=== PATIENT | female | born 1975 | race Two or more races ===

== ENCOUNTER 2016-07-19 04:11 | Emergency (ER) | payer MEDICAID ==
[~2016-07-19] VITALS: Ht 154.9 cm; Wt 74.8 kg
[2016-07-19 04:19] VITALS: BP 121/84
== END 2016-07-19 05:20 | disposition home or self-care (01) ==
LOC: ER 04:13
DX: H92.01 Otalgia, right ear (principal); F17.200 Nicotine dependence, unspecified, uncomplicated; Z90.49 Acquired absence of other specified parts of digestive tract
CPT/HCPCS: 99283; A4606; Z7610

== ENCOUNTER 2017-07-09 11:00 | Emergency (ER) | payer MEDICAID ==
[~2017-07-09] VITALS: Ht 154.9 cm; Wt 84.8 kg
[2017-07-09 11:00] VITALS: BP 147/47
--- NOTE | 2017-07-09 11:30 | NUR ---
pt refused to be triaged at this time
[2017-07-09] MEDS ORDERED: IBUPROFEN 600 MG TABLET PO ONE ×2 (12:30→12:45)
[2017-07-09] MEDS ORDERED: HYDROCODONE/APAP 5/325MG 1 EACH TABLET PO ONE (12:30)
[2017-07-09] MEDS ORDERED: HYDROCODONE/APAP 5/325MG 1 EACH TABLET ONE (12:45)
[2017-07-09] MEDS ORDERED: MORPHINE SULFATE INJ 2 MG/ML DISP.SYRIN IM ONE (13:00)
[2017-07-09] MEDS ORDERED: ONDANSETRON 4 MG TAB.RAPDIS SL ONE (13:00)
[2017-07-09] MEDS ORDERED: MORPHINE SULFATE INJ 4 MG/ML DISP.SYRIN ONE (13:02)
== END 2017-07-09 13:20 | disposition home or self-care (01) ==
LOC: ER 11:02
DX: S16.1XXA Strain of muscle, fascia and tendon at neck level, initial encounter (principal); F17.200 Nicotine dependence, unspecified, uncomplicated; Z90.49 Acquired absence of other specified parts of digestive tract; Z98.890 Other specified postprocedural states; X58.XXXA Exposure to other specified factors, initial encounter; Y93.89 Activity, other specified; Y92.89 Other specified places as the place of occurrence of the external cause; Y99.8 Other external cause status
CPT/HCPCS: 96372; 99284; A4606; J2270; Z7610

== ENCOUNTER 2018-04-03 16:23 | Emergency (ER) | payer MEDICAID, OTHER ==
[~2018-04-03] VITALS: Ht 154.9 cm; Wt 78.9 kg
[2018-04-03 16:41] VITALS: BP 121/81
[2018-04-03] MEDS ORDERED: HYDROCODONE/APAP 5/325MG 1 EACH TABLET PO ONE (18:00)
[2018-04-03] MEDS ORDERED: HYDROCODONE/APAP 5/325MG 1 EACH TABLET ONE (18:10)
== END 2018-04-03 18:31 | disposition home or self-care (01) ==
LOC: ER 16:30
DX: L03.012 Cellulitis of left finger (principal); L60.0 Ingrowing nail; M25.521 Pain in right elbow; F17.200 Nicotine dependence, unspecified, uncomplicated; Z90.49 Acquired absence of other specified parts of digestive tract; Z98.890 Other specified postprocedural states
CPT/HCPCS: 10060; 73080; 99283; A4606; A6403; A6407; Z7610

== ENCOUNTER 2019-01-16 22:23 | Emergency (ER) | payer OTHER ==
[~2019-01-16] VITALS: Ht 160 cm; Wt 87.5 kg
[2019-01-16 22:31] VITALS: BP 113/65
--- NOTE | 2019-01-16 22:51 | NUR ---
PT RETURNED FROM RADIOLOGY VIA WHEELCHAIR
== END 2019-01-16 23:20 | disposition home or self-care (01) ==
LOC: ER 22:23
DX: R07.89 Other chest pain (principal); F17.200 Nicotine dependence, unspecified, uncomplicated; Z90.49 Acquired absence of other specified parts of digestive tract; Z98.82 Breast implant status
CPT/HCPCS: 71046

== ENCOUNTER 2019-02-13 16:58 | Emergency (ER) | payer OTHER ==
[~2019-02-13] VITALS: Ht 160 cm; Wt 85.7 kg
--- NOTE | 2019-02-13 17:28 | NUR ---
PT CAME INTO THE ED C/O ABDOMINAL PAIN SINCE YESTERDAY 09/11. PT AAOX4, VSS, BREATHING EVEN AND UNLABORED ON ROOM AIR W NAD. PT CONNECTED TO THE MONITOR
[2019-02-13 17:50] LABS: BASOPHILS % (AUTO) 0.6 % (0.0-2.0); EOSINOPHILS % (AUTO) 1.9 % (0.0-6.0); HEMATOCRIT 32 % (33-45); LYMPHOCYTES # (AUTO) 1.4 /CMM (0.8-4.8); LYMPHOCYTES % (AUTO) 19.1 % (20.0-44.0); MEAN CORPUSCULAR HGB CONC 31 g/dl (31.0-36.0); MEAN CORPUSCULAR VOLUME 73 fL (82-100); MONOCYTES # (AUTO) 0.4 /CMM (0.1-1.30); MONOCYTES % (AUTO) 5.8 % (2.0-12.0); NEUTROPHILS # (AUTO) 5.3 /CMM (1.8-8.9); NEUTROPHILS % (AUTO) 72.6 % (43.0-81.0); PLATELET COUNT (AUTO) 354 /CMM (150-450); RED BLOOD CELL COUNT(AUTO) 4.41 MIL/uL (4.0-5.2); WHITE BLOOD COUNT (AUTO) 7.3 K/uL (4.3-11.0)
[2019-02-13] MEDS ORDERED: IBUPROFEN 600 MG TABLET PO ONE ×2 (17:54→18:00)
[2019-02-13 18:00] LABS: APPEARANCE,URINE Slightly Cloudy (CLEAR); BILIRUBIN,URINE SMALL (NEGATIVE); BLOOD, URINE Large Ery/uL (NEGATIVE); COLOR,URINE Yellow (YELLOW); KETONES,URINE Negative (NEGATIVE); LEUKOCYTE ESTERASE ,URINE Trace (NEGATIVE); NITRITE, URINE Negative (NEGATIVE); PH,URINE 5.5 (5.0-8.0); PROTEIN,URINE Negative (NEGATIVE); UGLUCOSE Negative (NEGATIVE); UROBILINOGEN,URINE 0.2 EU/dL (0.2)
[2019-02-13 18:04] LABS: ALBUMIN 3.7 g/dL (3.4-5.0); BILIRUBIN,TOTAL 0.1 mg/dL (0.2-1.0); CALCIUM, SERUM 9.1 mg/dL (8.5-10.1); CREATININE 0.7 mg/dL (0.6-1.3); POTASSIUM 4.2 mmol/L (3.5-5.1); TOTAL PROTEIN, SERUM 7.7 g/dL (6.4-8.2)
[2019-02-13 18:18] LABS: EOSINOPHILS % (MANUAL) 4 % (0-4); LYMPHOCYTES % (MANUAL) 20 % (16-48); MONOCYTES % (MANUAL) 7 % (0-11.0); NEUTROPHILS % (MANUAL) 69 (42-76)
[2019-02-13 18:21] LABS: RBC,URINE TOO NUMEROUS TO COUN /HPF (0-2)
[2019-02-13 18:22] LABS: BACTERIA,URINE Few /HPF (None Seen); MUCUS,URINE Many /LPF (None Seen); SQUAMOUS EPITHELIAL CELL,UR Many /HPF (None Seen); WBC,URINE 21-50 /HPF (0-3)
[2019-02-13 18:59] VITALS: BP 130/82
--- NOTE | 2019-02-13 18:59 | NUR ---
Patient discharged to home in stable condition. Written and verbal after care instructions given. Patient verbalizes understanding of instruction.
== END 2019-02-13 19:03 | disposition home or self-care (01) ==
LOC: ER 17:00
DX: N39.0 Urinary tract infection, site not specified (principal); F17.200 Nicotine dependence, unspecified, uncomplicated; Z98.890 Other specified postprocedural states; Z90.49 Acquired absence of other specified parts of digestive tract
CPT/HCPCS: 36415; 80048-TC; 80076-TC; 81000-TC; 83690-TC; 84703-TC; 85025-TC; 87086-TC

== ENCOUNTER 2019-03-04 10:24 | Emergency (ER) | payer OTHER ==
[~2019-03-04] VITALS: Ht 170.2 cm; Wt 89.0 kg
--- NOTE | 2019-03-04 10:30 | NUR ---
BIBRA FROM C/O L SIDE CHEST PAIN PRESSURE LIKE RADIATES TO L [id number]. PATIENT A/OX4, CRYING. KIDS AT BEDSIDE. BREATHING EVEN AND UNLABORED, NO SOB NOTED. NEEDS ATTENDED.
--- NOTE | 2019-03-04 10:30 | NUR ---
SEEN AND EXAMINED BY DR. MOORE
--- NOTE | 2019-03-04 10:33 | NUR ---
IV LINE ESTABLISHED, BLOOD DRAWN AND SENT TO LAB.
[2019-03-04 10:43] LABS: BASOPHILS % (AUTO) 0.6 % (0.0-2.0); EOSINOPHILS % (AUTO) 3.1 % (0.0-6.0); HEMATOCRIT 32 % (33-45); HEMOGLOBIN 9.9 g/dL (11.5-14.8); LYMPHOCYTES # (AUTO) 1.6 /CMM (0.8-4.8); MEAN CORPUSCULAR HGB CONC 31 g/dl (31.0-36.0); MEAN CORPUSCULAR VOLUME 74 fL (82-100); MONOCYTES # (AUTO) 0.5 /CMM (0.1-1.30); MONOCYTES % (AUTO) 7.3 % (2.0-12.0); NEUTROPHILS # (AUTO) 4.4 /CMM (1.8-8.9); PLATELET COUNT (AUTO) 333 /CMM (150-450); RED BLOOD CELL COUNT(AUTO) 4.31 MIL/uL (4.0-5.2); WHITE BLOOD COUNT (AUTO) 6.7 K/uL (4.3-11.0)
[2019-03-04 11:02] LABS: ALANINE AMINOTRANSFERASE 26 U/L (12-78); ALBUMIN 3.2 g/dL (3.4-5.0); ALKALINE PHOSPHATASE 61 U/L (46-116); ASPARTATE AMINOTRANSFERASE 13 U/L (15-37); BILIRUBIN,TOTAL 0.1 mg/dL (0.2-1.0); CALCIUM, SERUM 8.5 mg/dL (8.5-10.1); CARBON DIOXIDE 22 mmol/L (21-32); CHLORIDE 107 mmol/L (98-107); CREATININE 0.7 mg/dL (0.6-1.3); GLUCOSE 87 mg/dL (74-106); POTASSIUM 3.9 mmol/L (3.5-5.1); SODIUM SERUM 141 mmol/L (136-145); TOTAL PROTEIN, SERUM 6.9 g/dL (6.4-8.2); UREA NITROGEN, BLOOD 10 mg/dL (7-18)
[2019-03-04] MEDS ORDERED: HYDROCODONE/APAP 5/325MG 1 EACH TABLET ONE (11:27)
[2019-03-04] MEDS ORDERED: KETOROLAC TROMETHAMINE INJ 30 MG/ML VIAL ONE (11:27)
[2019-03-04] MEDS ORDERED: KETOROLAC TROMETHAMINE INJ 30 MG/ML VIAL IV ONE (11:30)
[2019-03-04] MEDS ORDERED: HYDROCODONE/APAP 5/325MG 1 EACH TABLET PO ONE (11:30)
--- NOTE | 2019-03-04 12:13 | NUR ---
Patient denies pain at this time. Ambulatory with a steady gait. IV removed. Catheter intact and site benign. Pressure and 4x4 applied to site. No bleeding noted.Patient discharged to home in stable condition. Written and verbal after care instructions given. Patient verbalizes understanding of instruction.
[2019-03-04 12:14] VITALS: BP 116/78
== END 2019-03-04 12:14 | disposition home or self-care (01) ==
LOC: ER 10:26
DX: F41.9 Anxiety disorder, unspecified (principal); R07.89 Other chest pain; F17.200 Nicotine dependence, unspecified, uncomplicated; Z90.49 Acquired absence of other specified parts of digestive tract; Z98.890 Other specified postprocedural states
CPT/HCPCS: 36415; 71045; 80048; 80076; 84484; 84702; 85025; 93005 ×2; 96374; 99284; J1885

== ENCOUNTER 2019-05-31 17:26 | Emergency (ER) | payer OTHER ==
[~2019-05-31] VITALS: Ht 154.9 cm; Wt 83.5 kg
--- NOTE | 2019-05-31 17:48 | NUR ---
CAME IN FOR LEFT SIDED, PRESSURE-LIKE CHEST PAIN "Chest Pain started yesterday now worse - left arm sleepy", TO ER BED 10, HOOKED TO BP CUFF AND POX, CHANGED TO HOSP GOWN, WARM BLANKET PROVIDED. PATIENT AOx4 , BREATHING EVEN AND UNLABORED. AWAITING MD MENA.
--- NOTE | 2019-05-31 17:56 | NUR ---
DR VALDES AT BEDSIDE
[2019-05-31] MEDS ORDERED: KETOROLAC TROMETHAMINE INJ 30 MG/ML VIAL IV ONE (18:00)
[2019-05-31] MEDS ORDERED: IV NS 0.9% 500 ML BAG IV ONE (18:00)
[2019-05-31] MEDS ORDERED: KETOROLAC TROMETHAMINE 15 MG/ML VIAL ONE (18:12)
[2019-05-31 18:15] LABS: BASOPHILS # (AUTO) 0.1 /CMM (0.0-0.2); BASOPHILS % (AUTO) 0.7 % (0.0-2.0); EOSINOPHILS % (AUTO) 2.3 % (0.0-6.0); HEMATOCRIT 31 % (33-45); HEMOGLOBIN 9.7 g/dL (11.5-14.8); LYMPHOCYTES # (AUTO) 1.5 /CMM (0.8-4.8); LYMPHOCYTES % (AUTO) 18.4 % (20.0-44.0); MEAN CORPUSCULAR HGB CONC 31 g/dl (31.0-36.0); MEAN CORPUSCULAR VOLUME 73 fL (82-100); MONOCYTES # (AUTO) 0.6 /CMM (0.1-1.30); MONOCYTES % (AUTO) 7.7 % (2.0-12.0); NEUTROPHILS # (AUTO) 5.6 /CMM (1.8-8.9); NEUTROPHILS % (AUTO) 70.9 % (43.0-81.0); PLATELET COUNT (AUTO) 442 /CMM (150-450); WHITE BLOOD COUNT (AUTO) 7.9 K/uL (4.3-11.0)
[2019-05-31 18:26] LABS: CALCIUM, SERUM 9.2 mg/dL (8.5-10.1); CARBON DIOXIDE 27 mmol/L (21-32); CHLORIDE 106 mmol/L (98-107); CREATININE 0.9 mg/dL (0.6-1.3); GLUCOSE 107 mg/dL (74-106); POTASSIUM 3.3 mmol/L (3.5-5.1); SODIUM SERUM 140 mmol/L (136-145); UREA NITROGEN, BLOOD 10 mg/dL (7-18)
[2019-05-31 18:32] LABS: ALANINE AMINOTRANSFERASE 23 U/L (12-78); ALBUMIN 3.5 g/dL (3.4-5.0); ALKALINE PHOSPHATASE 83 U/L (46-116); ASPARTATE AMINOTRANSFERASE 12 U/L (15-37); BILIRUBIN,TOTAL 0.2 mg/dL (0.2-1.0); LIPASE 83 U/L (73-393); TOTAL PROTEIN, SERUM 7.4 g/dL (6.4-8.2)
[2019-05-31 18:59] LABS: EOSINOPHILS % (MANUAL) 2 % (0-4); LYMPHOCYTES % (MANUAL) 19 % (16-48); MONOCYTES % (MANUAL) 6 % (0-11.0); NEUTROPHILS % (MANUAL) 73 (42-76)
--- NOTE | 2019-05-31 19:23 | NUR ---
IV removed. Catheter intact and site benign. Pressure and 4x4 applied to site. No bleeding noted.Patient discharged to home in stable condition. Written and verbal after care instructions given. Patient verbalizes understanding of instruction.
[2019-05-31 19:24] VITALS: BP 116/74
== END 2019-05-31 19:26 | disposition home or self-care (01) ==
LOC: ER 17:32
DX: R07.89 Other chest pain (principal); F41.9 Anxiety disorder, unspecified; Z90.49 Acquired absence of other specified parts of digestive tract; Z98.890 Other specified postprocedural states; Z98.82 Breast implant status
CPT/HCPCS: 36415; 80048; 80076; 83690; 84484; 84702; 85025; 93005; 96374; 99284; J1885; J7040

== ENCOUNTER 2019-06-08 19:38 | Emergency (ER) | payer OTHER ==
[~2019-06-08] VITALS: Ht 160 cm; Wt 88.0 kg
--- NOTE | 2019-06-08 19:56 | NUR ---
URINE COLECTED AND SENT TO LAB
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
[2019-06-08] MEDS ORDERED: FAMOTIDINE (20 MG) 20 MG TABLET ONE (20:11)
[2019-06-08] MEDS ORDERED: FAMOTIDINE (20 MG) 20 MG TABLET PO ONE (20:30)
[2019-06-08 21:29] VITALS: BP 130/78
--- NOTE | 2019-06-08 21:29 | NUR ---
Patient discharged to home in stable condition. Written and verbal after care instructions given. Patient verbalizes understanding of instruction.
== END 2019-06-08 21:31 | disposition home or self-care (01) ==
LOC: ER 19:39
DX: R10.13 Epigastric pain (principal); F17.200 Nicotine dependence, unspecified, uncomplicated; Z90.49 Acquired absence of other specified parts of digestive tract; Z98.890 Other specified postprocedural states

== ENCOUNTER 2019-06-19 13:49 | Emergency (ER) | payer OTHER ==
[~2019-06-19] VITALS: Ht 160 cm; Wt 87.1 kg
[2019-06-19 14:07] VITALS: BP 130/86
[2019-06-19] MEDS ORDERED: TRAMADOL HCL 50 MG TABLET PO ONE (14:30)
[2019-06-19] MEDS ORDERED: TRAMADOL HCL 50 MG TABLET ONE (14:33)
--- NOTE | 2019-06-19 14:35 | NUR ---
INSTALLATION MANAGER AT BEDSIDE FOR XRAY.
--- NOTE | 2019-06-19 15:10 | NUR ---
RON WRAP AND CRUTCHES DONE BY DIRECTOR OF PLANNING.
== END 2019-06-19 15:14 | disposition home or self-care (01) ==
LOC: ER 13:52
DX: M25.562 Pain in left knee (principal); Z90.49 Acquired absence of other specified parts of digestive tract; Z98.890 Other specified postprocedural states; Z98.82 Breast implant status
CPT/HCPCS: 73564-TC

== ENCOUNTER 2019-06-27 17:58 | Emergency (ER) | payer OTHER ==
[~2019-06-27] VITALS: Ht 162.6 cm; Wt 87.1 kg
--- NOTE | 2019-06-27 18:12 | NUR ---
C/O LEFT KNEE PAIN AND SWELLING. PATIENT A/OX4, BREATHING EVEN AND UNLABORED, ABLE TO AMBULATE BUT LIMPING. NEEDS ATTENDED. KEPT COMFORTABLE.
--- NOTE | 2019-06-27 18:49 | NUR ---
Patient discharged to home in stable condition. Written and verbal after care instructions given. Patient verbalizes understanding of instruction. Eyal wrap bandage.
[2019-06-27 18:50] VITALS: BP 128/84
== END 2019-06-27 18:50 | disposition home or self-care (01) ==
LOC: ER 17:58
DX: M25.562 Pain in left knee (principal); Z90.49 Acquired absence of other specified parts of digestive tract

== ENCOUNTER 2019-08-05 13:46 | Emergency (ER) | payer OTHER ==
[~2019-08-05] VITALS: Ht 162.6 cm; Wt 88.5 kg
[2019-08-05 13:52] VITALS: BP 145/96
--- NOTE | 2019-08-05 14:17 | NUR ---
AT BEDSIDE FOR EVAL.
--- NOTE | 2019-08-05 14:29 | NUR ---
ARTHROCENTESIS DONE BY .
--- NOTE | 2019-08-05 14:50 | NUR ---
KNEE BRACE APPLIED BY FIRE PREVENTION INSPECTOR.
--- NOTE | 2019-08-05 14:52 | NUR ---
Patient discharged to home in stable condition. Written and verbal after care instructions given. Patient verbalizes understanding of instruction.
== END 2019-08-05 14:53 | disposition home or self-care (01) ==
LOC: ER 13:51
DX: M25.562 Pain in left knee (principal); Z98.890 Other specified postprocedural states; Z90.49 Acquired absence of other specified parts of digestive tract
CPT/HCPCS: 20610; 99284; A6403

== ENCOUNTER 2019-12-22 18:17 | Emergency (ER) | payer OTHER ==
[~2019-12-22] VITALS: Ht 160 cm; Wt 83.9 kg
[2019-12-22] MEDS ORDERED: KETOROLAC TROMETHAMINE INJ 30 MG/ML VIAL ONE (18:58)
[2019-12-22] MEDS ORDERED: KETOROLAC TROMETHAMINE INJ 30 MG/ML VIAL IM ONE (19:00)
--- NOTE | 2019-12-22 19:00 | NUR ---
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 ON ROOM AIR, BREATHING EVENLY AND UNLABORED. CONNECTED TO THE MONITOR AND PULSE OX. KEPT COMFORTABLE, WILL CONTINUE TO MONITOR ACCORDINGLY.
--- NOTE | 2019-12-22 20:15 | NUR ---
PT RECEIVED WALKING BOOT. TOLERATED WELL. AMBULATORY WITH STEADY GAIT. Patient discharged to home in stable condition. Written and verbal after care instructions given. Patient verbalizes understanding of instruction.
[2019-12-22 20:16] VITALS: BP 124/79
== END 2019-12-22 20:16 | disposition home or self-care (01) ==
LOC: ER 18:22
DX: S93.492A Sprain of other ligament of left ankle, initial encounter (principal); F17.200 Nicotine dependence, unspecified, uncomplicated; Z90.49 Acquired absence of other specified parts of digestive tract; Z98.890 Other specified postprocedural states; X50.1XXA Overexertion from prolonged static or awkward postures, initial encounter; Y93.89 Activity, other specified; Y92.89 Other specified places as the place of occurrence of the external cause; Y99.0 Civilian activity done for income or pay
CPT/HCPCS: 73610; 73630; 96372; 99284; J1885

== ENCOUNTER 2020-08-20 19:24 | Emergency (ER) | payer OTHER ==
[~2020-08-20] VITALS: Ht 160 cm; Wt 97.5 kg
--- NOTE | 2020-08-20 19:57 | NUR ---
BIBS FROM HOME TO ER BED 7. AAOX4. NOT IN RESP DISTRESS. AMBULATORY. CAME IN FOR NAUSEA, VOMMITING AND DIARRHEA X 10 DAYS. PROVIDER WAS AT THE BEDSIDE FOR EVAL. ORDERS RECEIVED, NOTED AND CARRIED OUT.
[2020-08-20] MEDS: IV NS 0.9% 1,000 ML BAG IV ONE (20:13)
[2020-08-20 20:15] LABS: BASOPHILS # (AUTO) 0.1 /CMM (0.0-0.2); BASOPHILS % (AUTO) 0.6 % (0.0-2.0); EOSINOPHILS % (AUTO) 2.2 % (0.0-6.0); HEMATOCRIT 42 % (33-45); HEMOGLOBIN 13.8 g/dL (11.5-14.8); LYMPHOCYTES # (AUTO) 2.2 /CMM (0.8-4.8); LYMPHOCYTES % (AUTO) 20.9 % (20.0-44.0); MEAN CORPUSCULAR HGB CONC 33 g/dl (31.0-36.0); MEAN CORPUSCULAR VOLUME 90 fL (82-100); MONOCYTES # (AUTO) 0.6 /CMM (0.1-1.30); MONOCYTES % (AUTO) 6.2 % (2.0-12.0); NEUTROPHILS # (AUTO) 7.3 /CMM (1.8-8.9); NEUTROPHILS % (AUTO) 70.1 % (43.0-81.0); PLATELET COUNT (AUTO) 276 /CMM (150-450); RED BLOOD CELL COUNT(AUTO) 4.69 MIL/uL (4.0-5.2); WHITE BLOOD COUNT (AUTO) 10.3 K/uL (4.3-11.0)
[2020-08-20] MEDS ORDERED: ONDANSETRON HCL/PF 4 MG/2 ML VIAL ONE (20:17)
[2020-08-20] MEDS: ONDANSETRON HCL/PF 4 MG/2 ML VIAL IVP ONE (20:20)
[2020-08-20 20:21] LABS: BILIRUBIN,URINE Negative (NEGATIVE); COLOR,URINE YELLOW (YELLOW); LEUKOCYTE ESTERASE ,URINE Trace (NEGATIVE); NITRITE, URINE Negative (NEGATIVE); PH,URINE 5.5 (5.0-8.0); PROTEIN,URINE Negative (NEGATIVE); UGLUCOSE Negative (NEGATIVE); UROBILINOGEN,URINE 0.2 EU/dL (0.2)
[2020-08-20 20:22] LABS: BACTERIA,URINE Few /HPF (None Seen); RBC,URINE NONE SEEN /HPF (0-2); SQUAMOUS EPITHELIAL CELL,UR Few /HPF (None Seen)
[2020-08-20 20:24] LABS: CALCIUM, SERUM 8.9 mg/dL (8.5-10.1); CREATININE 0.7 mg/dL (0.6-1.3); POTASSIUM 3.8 mmol/L (3.5-5.1)
[2020-08-20 20:30] LABS: ALBUMIN 3.1 g/dL (3.4-5.0); BILIRUBIN,TOTAL 0.1 mg/dL (0.2-1.0); TOTAL PROTEIN, SERUM 6.6 g/dL (6.4-8.2)
[2020-08-20] MEDS ORDERED: ONDA4TAB5 PO (20:54)
--- NOTE | 2020-08-20 21:27 | NUR ---
Patient discharged to home in stable condition. Written and verbal after care instructions given. Patient verbalizes understanding of instruction.IV removed. Catheter intact and site benign. Pressure and 4x4 applied to site. No bleeding noted. Pt ambulatory with a steady gait
[2020-08-20 21:29] VITALS: BP 118/78
== END 2020-08-20 21:30 | disposition home or self-care (01) ==
LOC: ER 19:24
DX: B34.9 Viral infection, unspecified (principal); Z20.822 Contact with and (suspected) exposure to COVID-19; Z90.49 Acquired absence of other specified parts of digestive tract; K76.0 Fatty (change of) liver, not elsewhere classified; Z86.19 Personal history of other infectious and parasitic diseases; Z98.82 Breast implant status
CPT/HCPCS: 36415; 71045; 80048; 80076; 81001; 84703; 85025; 96361; 96374; 99284; C9803; J2405; J7030; U0003

== ENCOUNTER 2020-12-02 19:09 | Emergency (ER) | payer OTHER ==
[~2020-12-02] VITALS: Ht 160 cm; Wt 93.0 kg
[~2020-12-02 19:09] MED LIST: ONDA4TAB5 PO
--- NOTE | 2020-12-02 19:35 | NUR ---
PATIENT C/O BLE EDEMA FOR THE PAST 3 DAYS. PATIENT STATES PAINFUL WHEN WALKING. PATIENT IS A/O X 4, RR EVEN, NO SOB NOTED. PATIENT CONNECTED TO MECHANICAL PRODUCT ENGINEER AND POX.
[2020-12-02] MEDS ORDERED: HYDROCODONE/APAP 5/325MG TABLET ONE (20:22)
[2020-12-02] MEDS ORDERED: ONDANSETRON 4 MG TAB.RAPDIS ONE (20:22)
[2020-12-02] MEDS: HYDROCODONE/APAP 5/325MG TABLET PO ONE (20:25)
[2020-12-02] MEDS: ONDANSETRON 4 MG TAB.RAPDIS SL ONE (20:25)
[2020-12-02 20:46] LABS: BASOPHILS # (AUTO) 0.1 K/uL (0.0-0.2); BASOPHILS % (AUTO) 0.6 % (0.0-2.0); EOSINOPHILS % (AUTO) 2.4 % (0.0-6.0); HEMATOCRIT 38 % (33-45); HEMOGLOBIN 12.6 g/dL (11.5-14.8); LYMPHOCYTES # (AUTO) 2.1 K/uL (0.8-4.8); LYMPHOCYTES % (AUTO) 21.3 % (20.0-44.0); MEAN CORPUSCULAR HGB CONC 33 g/dl (31.0-36.0); MEAN CORPUSCULAR VOLUME 89 fL (82-100); MONOCYTES # (AUTO) 0.6 K/uL (0.1-1.30); MONOCYTES % (AUTO) 6.6 % (2.0-12.0); NEUTROPHILS # (AUTO) 6.8 K/uL (1.8-8.9); NEUTROPHILS % (AUTO) 69.1 % (43.0-81.0); PLATELET COUNT (AUTO) 288 K/uL (150-450); RED BLOOD CELL COUNT(AUTO) 4.24 MIL/uL (4.0-5.2); WHITE BLOOD COUNT (AUTO) 9.8 K/uL (4.3-11.0)
[2020-12-02 20:54] LABS: CALCIUM, SERUM 8.4 mg/dL (8.5-10.1); POTASSIUM 3.5 mmol/L (3.5-5.1)
[2020-12-02 21:00] LABS: ALBUMIN 3.2 g/dL (3.4-5.0); BILIRUBIN,DIRECT 0.1 mg/dL (0.0-0.2); BILIRUBIN,TOTAL 0.2 mg/dL (0.2-1.0); TOTAL PROTEIN, SERUM 6.2 g/dL (6.4-8.2)
--- NOTE | 2020-12-02 22:19 | NUR ---
Patient discharged to home in stable condition. Written and verbal after care instructions given. Patient verbalizes understanding of instruction.
[2020-12-02 22:29] VITALS: BP 126/72
== END 2020-12-02 22:19 | disposition home or self-care (01) ==
LOC: ER 19:10
DX: R60.0 Localized edema (principal); F17.200 Nicotine dependence, unspecified, uncomplicated; Z98.890 Other specified postprocedural states; Z90.49 Acquired absence of other specified parts of digestive tract; Z90.89 Acquired absence of other organs
CPT/HCPCS: 36415; 71045; 80048; 80076; 85025; 93005; 93970; 99285; Q0162

== ENCOUNTER 2020-12-16 20:32 | Emergency (ER) | payer OTHER ==
[~2020-12-16] VITALS: Ht 160 cm; Wt 93.0 kg
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
[2020-12-16] MEDS ORDERED: HYDROCODONE/APAP 5/325MG TABLET PO ONE (22:00)
[2020-12-16] MEDS ORDERED: HYDROCODONE/APAP 5/325MG TABLET ONE (22:00)
[2020-12-16] MEDS ORDERED: ACET-907 PO (22:28)
[2020-12-16] MEDS ORDERED: IBUP-1955 PO (22:28)
[2020-12-16 22:45] VITALS: BP 135/88
--- NOTE | 2020-12-16 22:45 | NUR ---
Patient discharged to home in stable condition. Written and verbal after care instructions given. Patient verbalizes understanding of instruction.
== END 2020-12-16 22:46 | disposition home or self-care (01) ==
LOC: ER 20:32
DX: S69.81XA Other specified injuries of right wrist, hand and finger(s), initial encounter (principal); F17.210 Nicotine dependence, cigarettes, uncomplicated; Z90.49 Acquired absence of other specified parts of digestive tract; Z98.890 Other specified postprocedural states; Z79.899 Other long term (current) drug therapy; W22.8XXA Striking against or struck by other objects, initial encounter; Y93.89 Activity, other specified; Y92.89 Other specified places as the place of occurrence of the external cause; Y99.8 Other external cause status
CPT/HCPCS: 73140-TC

== ENCOUNTER 2021-10-19 00:17 | Emergency (ER) | payer MEDICAID, OTHER ==
[~2021-10-19] VITALS: Ht 160 cm; Wt 89.8 kg
[~2021-10-19 00:17] MED LIST changes: +ACET-907 PO; +IBUP-1955 PO
--- NOTE | 2021-10-19 00:27 | NUR ---
BIBS C/O MID EPIGASTRIC PAIN [id number]. -N/V. HX OF H. PYLORI. PLACED COMFORTABLY IN BED. VITALS CHECKED.
[2021-10-19] MEDS ORDERED: KETOROLAC TROMETHAMINE INJ 30 MG/ML VIAL IV ONE (00:30)
--- NOTE | 2021-10-19 00:30 | NUR ---
URINE SPECIMEN SENT TO LAB
[2021-10-19] MEDS ORDERED: KETOROLAC TROMETHAMINE 15 MG/ML VIAL ONE (00:32)
--- NOTE | 2021-10-19 00:40 | NUR ---
IV CANNULA G20 INSERTED ON RIGHT AC. BLOOD DRAWN AND SENT TO LAB
--- NOTE | 2021-10-19 00:47 | NUR ---
PATIENT SIGNED DISCLAIMER THAT SHE IS NOT
[2021-10-19 01:01] LABS: CREATININE 0.6 mg/dL (0.6-1.3); POTASSIUM 3.7 mmol/L (3.5-5.1)
[2021-10-19 01:07] LABS: ALBUMIN 3.3 g/dL (3.4-5.0); BILIRUBIN,TOTAL 0.3 mg/dL (0.2-1.0)
[2021-10-19 01:17] LABS: BASOPHILS % (AUTO) 0.4 % (0.0-2.0); EOSINOPHILS % (AUTO) 2.4 % (0.0-6.0); HEMATOCRIT 36 % (33-45); HEMOGLOBIN 12.5 g/dL (11.5-14.8); LYMPHOCYTES # (AUTO) 1.8 K/uL (0.8-4.8); LYMPHOCYTES % (AUTO) 23.1 % (20.0-44.0); MEAN CORPUSCULAR HGB CONC 35 g/dl (31.0-36.0); MEAN CORPUSCULAR VOLUME 90 fL (82-100); MONOCYTES # (AUTO) 0.6 K/uL (0.1-1.30); MONOCYTES % (AUTO) 8.3 % (2.0-12.0); NEUTROPHILS # (AUTO) 5.1 K/uL (1.8-8.9); NEUTROPHILS % (AUTO) 65.8 % (43.0-81.0); PLATELET COUNT (AUTO) 259 K/uL (150-450); RED BLOOD CELL COUNT(AUTO) 4.01 MIL/uL (4.0-5.2); WHITE BLOOD COUNT (AUTO) 7.7 K/uL (4.3-11.0)
[2021-10-19] MEDS ORDERED: KETO10TA2 PO (01:49)
--- NOTE | 2021-10-19 02:04 | NUR ---
IV CANNULA REMOVED.
--- NOTE | 2021-10-19 02:04 | NUR ---
Patient discharged to home in stable condition. Written and verbal after care instructions given. Patient verbalizes understanding of instruction.
[2021-10-19 02:06] VITALS: BP 129/89
== END 2021-10-19 02:06 | disposition home or self-care (01) ==
LOC: ER 00:21
DX: R10.13 Epigastric pain (principal); F17.200 Nicotine dependence, unspecified, uncomplicated; Z90.49 Acquired absence of other specified parts of digestive tract; Z98.82 Breast implant status; Z79.899 Other long term (current) drug therapy
CPT/HCPCS: 99283; 96374; 85025; 80048; 83690; 80076; 36415; J1885

== ENCOUNTER 2021-11-24 00:31 | Emergency (ER) | payer SELFPAY ==
[~2021-11-24] VITALS: Ht 160 cm; Wt 90.7 kg
[~2021-11-24 00:31] MED LIST changes: +KETO10TA2 PO
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
--- NOTE | 2021-11-24 01:05 | NUR ---
DR. LANI SEWELL AT PT'S BEDSIDE FOR EVAL
[2021-11-24] MEDS ORDERED: IBUPROFEN 600 MG TABLET ONE (01:12)
[2021-11-24] MEDS ORDERED: HYDROCODONE/APAP 5/325MG TABLET ONE (01:12)
--- NOTE | 2021-11-24 01:16 | NUR ---
MANUFACTURING ADVISOR AT PT'S BEDSIDE
[2021-11-24] MEDS ORDERED: HYDROCODONE/APAP 5/325MG TABLET PO ONE (01:30)
[2021-11-24] MEDS ORDERED: IBUPROFEN 600 MG TABLET PO ONE (01:30)
[2021-11-24] MEDS ORDERED: IBUP-1957 PO (02:57)
[2021-11-24 03:05] VITALS: BP 111/77
--- NOTE | 2021-11-24 03:06 | NUR ---
Patient discharged to home in stable condition. Written and verbal after care instructions given. Patient verbalizes understanding of instruction.
== END 2021-11-24 03:06 | disposition home or self-care (01) ==
LOC: ER 00:38
DX: S93.402A Sprain of unspecified ligament of left ankle, initial encounter (principal); S33.5XXA Sprain of ligaments of lumbar spine, initial encounter; G89.29 Other chronic pain; M25.561 Pain in right knee; M25.562 Pain in left knee; G47.30 Sleep apnea, unspecified; F17.200 Nicotine dependence, unspecified, uncomplicated; Z98.890 Other specified postprocedural states; Z90.49 Acquired absence of other specified parts of digestive tract; Z60.2 Problems related to living alone; Z79.899 Other long term (current) drug therapy; X50.1XXA Overexertion from prolonged static or awkward postures, initial encounter; Y93.01 Activity, walking, marching and hiking; Y92.89 Other specified places as the place of occurrence of the external cause; Y99.8 Other external cause status
CPT/HCPCS: 73610-TC

== ENCOUNTER 2022-06-20 23:24 | Emergency (ER) | payer SELFPAY ==
[~2022-06-20] VITALS: Ht 160 cm; Wt 94.8 kg
[~2022-06-20 23:24] MED LIST changes: +IBUP-1957 PO
[2022-06-20 23:52] VITALS: BP 129/77
[2022-06-21] MEDS ORDERED: CYCLOBENZAPRINE 10 MG TABLET PO ONE
[2022-06-21] MEDS ORDERED: KETOROLAC TROMETHAMINE INJ 60 MG/2 ML VIAL IM ONE
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
[2022-06-21] MEDS ORDERED: LIDO30AD10 TP (00:06)
[2022-06-21] MEDS ORDERED: CYCL5TAB PO (00:06)
[2022-06-21] MEDS ORDERED: NAPR-1164 PO (00:06)
[2022-06-21] MEDS ORDERED: KETOROLAC TROMETHAMINE INJ 30 MG/ML VIAL ONE (00:10)
[2022-06-21] MEDS ORDERED: CYCLOBENZAPRINE 10 MG TABLET ONE (00:10)
--- NOTE | 2022-06-21 00:20 | NUR ---
Patient discharged to home in stable condition. RX Written and verbal after care instructions given. Patient verbalizes understanding of instruction.
== END 2022-06-21 01:00 | disposition home or self-care (01) ==
LOC: ER 23:28
DX: S33.5XXA Sprain of ligaments of lumbar spine, initial encounter (principal); S13.4XXA Sprain of ligaments of cervical spine, initial encounter; F17.200 Nicotine dependence, unspecified, uncomplicated; Z98.82 Breast implant status; Z90.49 Acquired absence of other specified parts of digestive tract; Z60.2 Problems related to living alone; Z79.899 Other long term (current) drug therapy; V89.2XXA Person injured in unspecified motor-vehicle accident, traffic, initial encounter; Y93.89 Activity, other specified; Y92.89 Other specified places as the place of occurrence of the external cause; Y99.8 Other external cause status
CPT/HCPCS: 99283; 96372; J1885

== ENCOUNTER 2023-01-09 04:57 | Emergency (ER) | payer MEDICAID ==
[~2023-01-09] VITALS: Ht 162.6 cm; Wt 93.9 kg
[~2023-01-09 04:57] MED LIST changes: +CYCL5TAB PO; +LIDO30AD10 TP; +NAPR-1164 PO
[2023-01-09] MEDS ORDERED: ACETAMINOPHEN 325 MG TABLET ONE (06:40)
[2023-01-09] MEDS ORDERED: ACETAMINOPHEN 325 MG TABLET PO ONE (07:00)
[2023-01-09] MEDS ORDERED: IBUP-1955 PO (07:40)
[2023-01-09] MEDS ORDERED: KETOROLAC TROMETHAMINE INJ 30 MG/ML VIAL ONE (07:49)
[2023-01-09 07:56] VITALS: BP 131/69; TEMP 98; O2SAT 100
[2023-01-09] MEDS ORDERED: KETOROLAC TROMETHAMINE INJ 30 MG/ML VIAL IM ONE (08:00)
== END 2023-01-09 07:56 | disposition home or self-care (01) ==
LOC: ER 05:03
DX: S09.8XXA Other specified injuries of head, initial encounter (principal); L30.9 Dermatitis, unspecified; J34.89 Other specified disorders of nose and nasal sinuses; F17.200 Nicotine dependence, unspecified, uncomplicated; Z90.49 Acquired absence of other specified parts of digestive tract; Z98.890 Other specified postprocedural states; Z79.899 Other long term (current) drug therapy; Z60.2 Problems related to living alone; W51.XXXA Accidental striking against or bumped into by another person, initial encounter; Y93.89 Activity, other specified; Y92.89 Other specified places as the place of occurrence of the external cause; Y99.8 Other external cause status
CPT/HCPCS: 99285; 70450; 96372; 70486; J1885

== ENCOUNTER 2024-12-21 11:00 | Inpatient (IN) | payer MEDICAID, OTHER ==
[~2024-12-21] VITALS: Ht 157.5 cm; Wt 100.7 kg
[2024-12-21 11:28] LABS: APPEARANCE,URINE CLEAR (CLEAR); BLOOD, URINE Trace-intact Ery/uL (NEGATIVE); LEUKOCYTE ESTERASE ,URINE Negative (NEGATIVE); UGLUCOSE Negative (NEGATIVE)
[2024-12-21 11:29] LABS: NITRITE, URINE NEGATIVE (NEGATIVE)
[2024-12-21 11:32] LABS: ADD URINE CULTURE NO
[2024-12-21] MEDS: IV NS 0.9% 1,000 ML BAG IV ONE (11:35)
[2024-12-21 11:40] LABS: PLATELET COUNT (AUTO) 264 K/uL (150-450); RED BLOOD CELL COUNT(AUTO) 4.46 MIL/uL (4.0-5.2); RED CELL DISTRIBUTION WIDTH 14.1 % (11.5-15.0); WHITE BLOOD COUNT (AUTO) 10.0 K/uL (4.3-11.0)
[2024-12-21] MEDS ORDERED: METOCLOPRAMIDE HCL 10 MG/2 ML VIAL ONE (11:40)
[2024-12-21] MEDS ORDERED: PANTOPRAZOLE 40 MG VIAL ONE (11:40)
[2024-12-21] MEDS ORDERED: KETOROLAC TROMETHAMINE 15 MG/ML VIAL ONE (11:40)
[2024-12-21] MEDS ORDERED: FAMOTIDINE/PF INJ 20 MG/2 ML VIAL IV ONE (11:40)
[2024-12-21] MEDS: PANTOPRAZOLE 40 MG VIAL IV ONE (11:45)
[2024-12-21 11:47] LABS: CALCIUM, SERUM 9.0 mg/dL (8.5-10.1); CREATININE 0.6 mg/dL (0.6-1.3); SODIUM SERUM 138.0 mmol/L (136-145); UREA NITROGEN, BLOOD 8.0 mg/dL (7-18)
[2024-12-21] MEDS: FAMOTIDINE/PF INJ 20 MG/2 ML VIAL IV ONE (11:48)
[2024-12-21] MEDS ORDERED: CT SWABBABLE VALVE TRANS SET 1 EA INFUS.SET MC ONE (11:50)
[2024-12-21] MEDS ORDERED: IOHEXOL-300 100 ML VIAL IV ONE (11:50)
[2024-12-21] MEDS ORDERED: IV NS 0.9% 250 ML IV ONE (11:50)
[2024-12-21] MEDS: KETOROLAC TROMETHAMINE 15 MG/ML VIAL IV ONE (11:50)
[2024-12-21 11:52] LABS: ASPARTATE AMINOTRANSFERASE 16.0 U/L (15-37); TOTAL PROTEIN, SERUM 7.9 g/dL (6.4-8.2)
[2024-12-21] MEDS: METOCLOPRAMIDE HCL 10 MG/2 ML VIAL IV ONE (12:15)
[2024-12-21] MEDS ORDERED: PIPERACI/TAZO 3.375GM/D5W 50ML PB IV ONE (13:18)
[2024-12-21] MEDS: IV D5/ 0.9% NACL 1,000 ML IV ONE (13:30)
[2024-12-21] MEDS: PIPERACILLIN /TAZOBACTAM 3.375 G in IV D5W 50 ML IV SCH (13:35)
[2024-12-21] MEDS ORDERED: ASPI-992 PO (14:06)
[2024-12-21] MEDS ORDERED: IBUP-1955 PO (14:06)
[2024-12-21] MEDS ORDERED: TRAM50TA2 PO (14:06)
[2024-12-21] MEDS ORDERED: ONDANSETRON HCL/PF 4 MG/2 ML VIAL ONE (14:28)
[2024-12-21] MEDS ORDERED: MORPHINE SULFATE INJ 4 MG/ML DISP.SYRIN ONE (14:29)
[2024-12-21] MEDS: ONDANSETRON HCL/PF - ER 4 MG/2 ML VIAL IV ONE (14:31)
[2024-12-21] MEDS: MORPHINE SULFATE INJ 2 MG/ML DISP.SYRIN IV ONE (14:33)
[2024-12-21] MEDS ORDERED: Z GUARD REMEDY 4 OZ OINT TP PRN (17:00)
[2024-12-21] MEDS ORDERED: MAG HYDROX/AL HYDROX/SIMETH 30 ML UDC PO PRN (17:00)
[2024-12-21] MEDS ORDERED: DOSING PER PHARMACY-ZOSYN IV 1 EA EA XX PRN (17:00)
[2024-12-21] MEDS ORDERED: ACETAMINOPHEN 325 MG TABLET PO PRN (17:00)
[2024-12-21] MEDS: IV NS 0.9% 1,000 ML IV PRN (17:33)
[2024-12-21 18:00] VITALS: BP 112/74; TEMP 98.1; O2SAT 99
[2024-12-21 18:02] VITALS: BP 115/61; TEMP 98.3; O2SAT 99
[2024-12-21] MEDS: MORPHINE SULFATE INJ 2 MG/ML DISP.SYRIN IV PRN (18:35)
[2024-12-21] MEDS: ZOSYN IVPB 3.375 G in IV D5W 50ml IV SCH (19:00)
[2024-12-21 20:00] VITALS: BP 119/82; TEMP 98.4; O2SAT 98
[2024-12-22 07:18] LABS: PLATELET COUNT (AUTO) 244 K/uL (150-450); RED BLOOD CELL COUNT(AUTO) 4.01 MIL/uL (4.0-5.2); RED CELL DISTRIBUTION WIDTH 14.0 % (11.5-15.0); WHITE BLOOD COUNT (AUTO) 6.0 K/uL (4.3-11.0)
[2024-12-22 07:40] LABS: CALCIUM, SERUM 8.9 mg/dL (8.5-10.1); CREATININE 0.8 mg/dL (0.6-1.3); PHOSPHORUS 4.6 mg/dL (2.5-4.9); SODIUM SERUM 140.0 mmol/L (136-145); UREA NITROGEN, BLOOD 9.0 mg/dL (7-18)
[2024-12-22 08:00] VITALS: BP 129/80; TEMP 97.9; O2SAT 94
[2024-12-22 16:00] VITALS: BP 101/75; TEMP 97.7; O2SAT 98
[2024-12-22] MEDS: ONDANSETRON HCL/PF 4 MG/2 ML VIAL IVP PRN (18:33)
[2024-12-22 20:00] VITALS: BP 115/80; TEMP 98.1; O2SAT 95
[2024-12-23 08:21] LABS: CALCIUM, SERUM 9.1 mg/dL (8.5-10.1); CREATININE 0.9 mg/dL (0.6-1.3); SODIUM SERUM 142.0 mmol/L (136-145); UREA NITROGEN, BLOOD 8.0 mg/dL (7-18)
[2024-12-23 08:29] VITALS: BP 102/73; TEMP 97.6; O2SAT 100
[2024-12-23 08:32] LABS: PLATELET COUNT (AUTO) 261 K/uL (150-450); RED BLOOD CELL COUNT(AUTO) 4.18 MIL/uL (4.0-5.2); RED CELL DISTRIBUTION WIDTH 13.8 % (11.5-15.0); WHITE BLOOD COUNT (AUTO) 4.3 K/uL (4.3-11.0)
[2024-12-23 08:33] VITALS: BP 109/73; TEMP 97.6; O2SAT 100
[2024-12-23 15:57] VITALS: BP 104/76; TEMP 98.2; O2SAT 97
[2024-12-23 16:30] VITALS: BP 104/76; TEMP 98.2; O2SAT 97
[2024-12-23 20:56] VITALS: BP 121/79; TEMP 97.7; O2SAT 97
[2024-12-23 22:35] VITALS: BP 121/79; TEMP 97.7; O2SAT 97
[2024-12-24 06:45] LABS: PLATELET COUNT (AUTO) 236 K/uL (150-450); RED BLOOD CELL COUNT(AUTO) 4.09 MIL/uL (4.0-5.2); RED CELL DISTRIBUTION WIDTH 13.9 % (11.5-15.0); WHITE BLOOD COUNT (AUTO) 4.9 K/uL (4.3-11.0)
[2024-12-24 07:16] LABS: CALCIUM, SERUM 8.9 mg/dL (8.5-10.1); CREATININE 0.8 mg/dL (0.6-1.3); SODIUM SERUM 139.0 mmol/L (136-145); UREA NITROGEN, BLOOD 7.0 mg/dL (7-18)
[2024-12-24 08:20] VITALS: BP 104/56; TEMP 98.6; O2SAT 95
[2024-12-24] MEDS ORDERED: AMOX-430 PO (08:54)
[2024-12-24] MEDS: PIPERACILLIN /TAZOBACTAM 3.375 G in IV D5W 100 ML IV SCH (14:54)
[2024-12-24 16:24] VITALS: BP 134/82; TEMP 99; O2SAT 98
[2024-12-24 20:00] VITALS: BP 105/45; TEMP 97.3; O2SAT 96
[2024-12-24] MEDS: oxyCODONE IR immediate release 5 MG TABLET PO PRN (23:28)
[2024-12-25] MEDS: MAGNESIUM HYDROXIDE 30 ML UDC PO PRN (06:15)
[2024-12-25] MEDS ORDERED: ACETAMINOPHEN 325 MG TABLET PO PRN ×2 (07:30)
[2024-12-25 08:00] VITALS: BP 101/78; TEMP 98.1; O2SAT 94
[2024-12-25] MEDS: DOCUSATE SODIUM 100 MG CAPSULE PO SCH (08:06)
[2024-12-25 16:00] VITALS: BP 105/73; TEMP 98.1; O2SAT 98
[2024-12-25 20:00] VITALS: BP 113/73; TEMP 97.7; O2SAT 96
[2024-12-26 08:00] VITALS: BP 112/73; TEMP 98.2; O2SAT 98
[2024-12-26] MEDS: DOCUSATE SODIUM 100 MG CAPSULE PO SCH (08:24)
[2024-12-26] MEDS: SENNOSIDES/DOCUSATE SODIUM 1 TAB TABLET PO SCH (08:24)
[2024-12-26] MEDS ORDERED: SENN8.6T19 PO (14:33)
[2024-12-26] MEDS ORDERED: DOCU-141 PO (14:33)
== END 2024-12-26 18:37 | disposition home or self-care (01) | DRG 244 ==
LOC: ER 11:06 → MED 16:19
PROVIDERS: ADMIT Internal Medicine; ATTEND Internal Medicine
DX: K57.20 Diverticulitis of large intestine with perforation and abscess without bleeding (principal); E44.0 Moderate protein-calorie malnutrition; E66.9 Obesity, unspecified; T85.49XA Other mechanical complication of breast prosthesis and implant, initial encounter; Y81.2 Prosthetic and other implants, materials and accessory general- and plastic-surgery devices associated with adverse incidents; Y83.8 Other surgical procedures as the cause of abnormal reaction of the patient, or of later complication, without mention of misadventure at the time of the procedure; Y92.009 Unspecified place in unspecified non-institutional (private) residence as the place of occurrence of the external cause; N83.202 Unspecified ovarian cyst, left side; Z79.82 Long term (current) use of aspirin; Z90.49 Acquired absence of other specified parts of digestive tract; Z98.891 History of uterine scar from previous surgery; Z68.41 Body mass index [BMI] 40.0-44.9, adult
CPT/HCPCS: 36415; 70490-TC; 71250-TC; 76641-TC; 80048-TC; 80076-TC; 81001; 83690-TC; 83735-TC; 84100-TC; 84703-TC; 85025-TC; 87081-TC; A4223; G0378; J1308; J1885; J2270; J2405; J2470; J2543; J2765; J7030; J7040; J7042; J7050; J7060; Q9967